=== PATIENT | female | born 1945 | race Hispanic/Latino ===

== ENCOUNTER 2020-02-11 08:08 | Emergency (ER) | payer OTHER ==
[2020-02-11] MEDS ORDERED: FENTANYL CITRATE PF 50 MCG/1 ML 2ML VIAL ONE (08:33)
[2020-02-11] MEDS ORDERED: ONDANSETRON HCL 4 MG/2 ML VIAL ONE (08:33)
[2020-02-11 08:41] LABS: BASOPHILS % (AUTO) 0.6 % (0.0-5.0); EOSINOPHILS % (AUTO) 1.5 % (0.0-8.0); HEMATOCRIT 37.7 % (36-48); LYMPHOCYTES % (AUTO) 19.5 % (21.0-51.0); MEAN CORPUSCULAR HEMOGLOBIN 27.6 pg (27.0-33.0); MEAN CORPUSCULAR HGB CONC 31.6 g/dL (32.0-36.0); MEAN CORPUSCULAR VOLUME 87.5 fL (79-99); MONOCYTES % (AUTO) 5.1 % (3.0-13.0); PLATELET COUNT (AUTO) 236 K/uL (130-400); RED BLOOD CELL COUNT(AUTO) 4.31 MIL/uL (4.00-5.50); RED CELL DISTRIBUTION WIDTH 15.6 % (11.0-15.5); WHITE BLOOD COUNT (AUTO) 8.7 K/uL (4.8-10.8)
[2020-02-11 08:42] LABS: CREATININE 0.9 mg/dL (0.5-1.5); POTASSIUM 4.4 mmol/L (3.5-5.1)
== END 2020-02-11 11:09 | disposition home or self-care (01) ==
LOC: EDH 08:08
DX: S40.012A Contusion of left shoulder, initial encounter (principal); E11.9 Type 2 diabetes mellitus without complications; I10 Essential (primary) hypertension; E03.9 Hypothyroidism, unspecified; Z90.49 Acquired absence of other specified parts of digestive tract; Z90.710 Acquired absence of both cervix and uterus; W18.39XA Other fall on same level, initial encounter; Y93.01 Activity, walking, marching and hiking; Y92.89 Other specified places as the place of occurrence of the external cause; Y99.8 Other external cause status
CPT/HCPCS: 36415; 70450; 72125; 73030; 80048; 84484; 85025; 93005; 96374; 96375; 99284; J2405; J3010

== ENCOUNTER 2020-06-15 17:31 | Inpatient (IN) | payer MEDICARE, OTHER ==
[~2020-06-15] VITALS: Ht 172.7 cm; Wt 100.2 kg
[2020-06-15] MEDS ORDERED: ACETAMINOPHEN WITH CODEINE 1 TAB TAB ONE (17:53)
[2020-06-15] MEDS ORDERED: MORPHINE 4 MG SYG ONE (19:08)
[2020-06-15 19:26] LABS: BASOPHILS % (AUTO) 0.6 % (0.0-5.0); EOSINOPHILS % (AUTO) 9.7 % (0.0-8.0); HEMATOCRIT 35.1 % (36-48); LYMPHOCYTES % (AUTO) 13.2 % (21.0-51.0); MEAN CORPUSCULAR HEMOGLOBIN 26.9 pg (27.0-33.0); MEAN CORPUSCULAR HGB CONC 31.3 g/dL (32.0-36.0); MEAN CORPUSCULAR VOLUME 85.8 fL (79-99); MONOCYTES % (AUTO) 4.9 % (3.0-13.0); NEUTROPHILS % (AUTO) 71.1 % (40.0-77.0); PLATELET COUNT (AUTO) 223 K/uL (130-400); RED BLOOD CELL COUNT(AUTO) 4.09 MIL/uL (4.00-5.50); RED CELL DISTRIBUTION WIDTH 15.6 % (11.0-15.5); WHITE BLOOD COUNT (AUTO) 8.7 K/uL (4.8-10.8)
[2020-06-15 19:32] LABS: INR 0.99 (0.85-1.15); PROTHROMBIN TIME 10.8 SEC (9.6-11.6)
[2020-06-15 19:33] LABS: PARTIAL THROMBOPLASTIN TIME 26.6 SEC (26.3-35.5)
[2020-06-15 19:40] LABS: CREATININE 1.2 mg/dL (0.5-1.5); POTASSIUM 4.7 mmol/L (3.5-5.1)
[2020-06-15] MEDS ORDERED: ACETAMINOPHEN 325 MG TAB PO PRN ×2 (22:15)
[2020-06-15] MEDS ORDERED: MORPHINE 2 MG SYG IV PRN (22:15)
[2020-06-15] MEDS ORDERED: ONDANSETRON 4MG INJ IV PRN (22:15)
[2020-06-15] MEDS ORDERED: MORPHINE 4 MG SYG IV PRN (22:15)
[2020-06-16] VITALS (24 sets, daily range): BP systolic 103–176; BP diastolic 37–69
[2020-06-16] MEDS ORDERED: ATORVASTATIN 20 MG TABLET ONE (01:36)
[2020-06-16] MEDS ORDERED: INSULIN HUMULIN R 100 UNIT/ML 3ML ONE (01:41)
[2020-06-16 06:12] LABS: BASOPHILS % (AUTO) 0.6 % (0.0-5.0); EOSINOPHILS % (AUTO) 0.5 % (0.0-8.0); HEMATOCRIT 33.4 % (36-48); LYMPHOCYTES % (AUTO) 16.1 % (21.0-51.0); MEAN CORPUSCULAR HEMOGLOBIN 26.9 pg (27.0-33.0); MEAN CORPUSCULAR HGB CONC 31.1 g/dL (32.0-36.0); MEAN CORPUSCULAR VOLUME 86.3 fL (79-99); MONOCYTES % (AUTO) 6.5 % (3.0-13.0); NEUTROPHILS % (AUTO) 75.8 % (40.0-77.0); PLATELET COUNT (AUTO) 237 K/uL (130-400); RED BLOOD CELL COUNT(AUTO) 3.87 MIL/uL (4.00-5.50); RED CELL DISTRIBUTION WIDTH 15.8 % (11.0-15.5); WHITE BLOOD COUNT (AUTO) 8.9 K/uL (4.8-10.8)
[2020-06-16 06:23] LABS: POTASSIUM 4.3 mmol/L (3.5-5.1)
[2020-06-16 06:25] LABS: INR 1.03 (0.85-1.15); PROTHROMBIN TIME 11.2 SEC (9.6-11.6)
[2020-06-16 06:26] LABS: PARTIAL THROMBOPLASTIN TIME 25.8 SEC (26.3-35.5)
[2020-06-16] MEDS ORDERED: ONDANSETRON 4MG INJ ONE ×2 (08:29→15:45)
[2020-06-16] MEDS ORDERED: MORPHINE 2 MG SYG ONE (08:29)
[2020-06-16] MEDS: FAMOTIDINE 20MG VIAL IV SCH ×2 (09:00→20:30)
[2020-06-16] MEDS: METOPROLOL TARTRATE 25 MG TAB PO SCH ×2 (09:00→20:30)
[2020-06-16] MEDS: LOSARTAN 50 MG TABLET PO SCH (09:00)
[2020-06-16] MEDS ORDERED: FAMOTIDINE 20MG VIAL IV ONE (09:32)
[2020-06-16] MEDS: INSULIN HUMULIN R 100 UNIT/ML 3ML SQ SCH ×3 (12:00→20:37)
[2020-06-16] MEDS ORDERED: HYDRALAZINE 20MG/ML VIAL IV PRN ×2 (15:00→15:15)
[2020-06-16] MEDS ORDERED: 0.9%NACL 1000ML 1,000 ML IV ONE (15:36)
[2020-06-16] MEDS ORDERED: CEFAZOLIN SODIUM 1 GM VIAL ONE (15:36)
[2020-06-16] MEDS ORDERED: LIDOCAINE PF 100MG/5ML (2%) SYRINGE 5ML ONE ×2 (15:43→18:00)
[2020-06-16] MEDS ORDERED: SUCCINYLCHOLINE CHLORIDE 20 MG/ML 10 ML VIAL ONE (15:43)
[2020-06-16] MEDS ORDERED: PROPOFOL 10 MG/ML 20ML VIAL IV ONE (15:45)
[2020-06-16] MEDS ORDERED: DEXAMETHASONE SOD PHOSPHATE 10MG/ML 1ML VIAL ONE (15:45)
[2020-06-16] MEDS ORDERED: GLYCOPYRROLATE 1 MG/5 ML SYRINGE ONE (15:45)
[2020-06-16] MEDS ORDERED: MIDAZOLAM HCL 1 MG/ML 2ML VIAL ONE (15:45)
[2020-06-16] MEDS ORDERED: NEOSTIGMINE 5MG/5ML SYR IV ONE (15:45)
[2020-06-16] MEDS ORDERED: MEPERIDINE-PF 25 MG/ML SYG ONE (15:46)
[2020-06-16] MEDS ORDERED: FENTANYL CITRATE PF 50 MCG/1 ML 2ML VIAL ONE (15:46)
[2020-06-16] MEDS ORDERED: ROCURONIUM 10MG/1ML SYR 10 MG/ML ML ONE (15:46)
[2020-06-16] MEDS ORDERED: ROPIVACAINE 0.5% 5MG/ML 30ML IJ ONE (15:48)
[2020-06-16] MEDS: CEFAZOLIN SODIUM 1 GM VIAL IVP SCH ×2 (16:00→18:15)
[2020-06-16] MEDS ORDERED: KETOROLAC 30MG VIAL (30MG/ML) ONE (17:58)
[2020-06-16] MEDS ORDERED: ATORVASTATIN 20 MG TABLET PO SCH (21:00)
[2020-06-16] MEDS ORDERED: INSULIN GLARGINE 100 UNITS/ML 10 ML VIAL SQ SCH (21:00)
[2020-06-17] MEDS ORDERED: INSLAN SQ (01:10)
[2020-06-17] MEDS ORDERED: LOSA50TA64 PO (01:10)
[2020-06-17] MEDS ORDERED: ATOR40TA71 PO (01:10)
[2020-06-17] MEDS ORDERED: MULT-1367 PO (01:10)
[2020-06-17] MEDS ORDERED: HYDR25TA PO (01:10)
[2020-06-17] MEDS ORDERED: LIRA0.6P SQ (01:10)
[2020-06-17] MEDS ORDERED: OMEP40CA21 PO (01:10)
[2020-06-17] MEDS ORDERED: ASPI-1197 PO (01:10)
[2020-06-17] MEDS ORDERED: CALC-1009 PO (01:10)
[2020-06-17] MEDS ORDERED: LEVO50CA4 PO (01:10)
[2020-06-17] MEDS: CEFAZOLIN SODIUM 1 GM VIAL IVP SCH (01:13)
[2020-06-17] MEDS ORDERED: GLIP1TAB6 PO (01:22)
[2020-06-17 04:12] VITALS: BP 111/64
[2020-06-17] MEDS: INSULIN HUMULIN R 100 UNIT/ML 3ML SQ SCH ×2 (06:19→12:19)
[2020-06-17 08:04] VITALS: BP 114/35
[2020-06-17] MEDS ORDERED: MULTIVITAMIN TABLET PO SCH (09:00)
[2020-06-17] MEDS ORDERED: HYDROCHLOROTHIAZIDE 25 MG TABLET PO SCH (09:00)
[2020-06-17] MEDS ORDERED: CEFAZOLIN SODIUM 1 GM VIAL IVP SCH (09:00)
[2020-06-17] MEDS ORDERED: ASPIRIN 81MG CHEW TAB PO SCH (09:00)
[2020-06-17] MEDS ORDERED: LOSARTAN 50 MG TABLET PO SCH (09:00)
[2020-06-17] MEDS ORDERED: CA 600MG+VIT D 400 UNIT TAB 1 TAB TABLET PO SCH (09:00)
[2020-06-17] MEDS: FAMOTIDINE 20MG VIAL IV SCH (09:40)
[2020-06-17] MEDS: LOSARTAN 50 MG TABLET PO SCH (09:46)
[2020-06-17] MEDS: METOPROLOL TARTRATE 25 MG TAB PO SCH (09:47)
[2020-06-17 11:20] VITALS: BP 126/51
[2020-06-17 16:30] VITALS: BP 151/50
[2020-06-17] MEDS ORDERED: ATORVASTATIN 40 MG TABLET PO SCH (21:00)
[2020-06-18] MEDS ORDERED: LEVOTHYROXINE 50 MCG TABLET PO SCH (07:30)
== END 2020-06-17 18:00 | DRG 517 ==
LOC: EDH 17:31 → EDHIP 22:11 → 3AH 06-16 13:22
PROVIDERS: ADMIT Internal Medicine; ATTEND Internal Medicine
PROC: 0QSF04Z Reposition Left Patella with Internal Fixation Device, Open Approach (ICD-10-PCS; principal; 2020-06-15)
DX: S82.042A Displaced comminuted fracture of left patella, initial encounter for closed fracture (principal); E11.9 Type 2 diabetes mellitus without complications; E78.5 Hyperlipidemia, unspecified; E03.9 Hypothyroidism, unspecified; I10 Essential (primary) hypertension; E66.01 Morbid (severe) obesity due to excess calories; Z68.33 Body mass index [BMI] 33.0-33.9, adult; W00.0XXA Fall on same level due to ice and snow, initial encounter; Y93.01 Activity, walking, marching and hiking; Y92.098 Other place in other non-institutional residence as the place of occurrence of the external cause; Y99.8 Other external cause status; Z79.4 Long term (current) use of insulin; Z90.710 Acquired absence of both cervix and uterus
CPT/HCPCS: 36415; 73562; 80048; 82948; 85025; 85610; 85730; 86850; 86900; 86901; 93005; 97039; A4344; G0378; J0330; J0690; J1100; J1815; J1885; J2001; J2175; J2250; J2270; J2405; J2704; J2710; J2795; J3010; J3490; J7030

== ENCOUNTER → 2021-05-20 | Outpatient (CLI) | payer MEDICARE ==
[~2021-05-20] MED LIST: ASPI-1197 PO; ATOR40TA71 PO; CALC-1009 PO; GLIP1TAB6 PO; HYDR25TA PO; INSLAN SQ; LEVO50CA4 PO; LIRA0.6P SQ; LOSA50TA64 PO; MULT-1367 PO; OMEP40CA21 PO
[2021-05-20 12:31] LABS: BASOPHILS % (AUTO) 0.7 % (0.0-5.0); EOSINOPHILS % (AUTO) 1.7 % (0.0-8.0); HEMATOCRIT 35.3 % (36-48); LYMPHOCYTES % (AUTO) 17.3 % (21.0-51.0); MEAN CORPUSCULAR HEMOGLOBIN 26.5 pg (27.0-33.0); MEAN CORPUSCULAR HGB CONC 31.2 g/dL (32.0-36.0); MEAN CORPUSCULAR VOLUME 85.1 fL (79-99); MONOCYTES % (AUTO) 5.8 % (3.0-13.0); PLATELET COUNT (AUTO) 265 K/uL (130-400); RED BLOOD CELL COUNT(AUTO) 4.15 MIL/uL (4.00-5.50); RED CELL DISTRIBUTION WIDTH 16.5 % (11.0-15.5)
[2021-05-20 12:53] LABS: THYROID STIMULATING HORMONE 4.31 uIU/mL (0.36-3.74)
== END | disposition home or self-care (01) ==
LOC: LAB 11:32
PROVIDERS: ATTEND Family Medicine
DX: D50.9 Iron deficiency anemia, unspecified (principal); E78.2 Mixed hyperlipidemia; Z79.4 Long term (current) use of insulin
CPT/HCPCS: 36415; 83540; 84439; 84443; 85025

== ENCOUNTER → 2021-10-20 | Outpatient (CLI) | payer MEDICARE | END | disposition home or self-care (01) | LOC: RAH 13:55 | PROVIDERS: ATTEND Family Medicine | DX: I08.3 Combined rheumatic disorders of mitral, aortic and tricuspid valves (principal); I11.9 Hypertensive heart disease without heart failure; E78.5 Hyperlipidemia, unspecified; E11.9 Type 2 diabetes mellitus without complications; E66.9 Obesity, unspecified | CPT/HCPCS: 93306 ==

== ENCOUNTER 2025-03-26 05:51 | Day surgery (SDC) | payer MEDICARE ==
[2025-03-24 11:30] LABS: INR 1.26 (0.85-1.15)
[2025-03-24 11:32] LABS: CREATININE 1.3 mg/dL (0.5-1.0); GLOMERULAR FILTR. RATE CALC 42.0 mL/min (>90); GLUCOSE,RANDOM 206.0 mg/dL (70-105); SODIUM SERUM 132.0 mmol/L (136-145); UREA NITROGEN, BLOOD 28.0 mg/dL (7-18)
[2025-03-24 11:34] VITALS: BP 139/54; PULSE 61; RESP 17; TEMP 97.9
[2025-03-24 11:35] LABS: IMMATURE GRANULOCYTE ABSOLUTE 0.04 K/uL (0-1); NUCLEATED RED BLOOD CELLS 0.0 % (0.0-0.19); PLATELET COUNT (AUTO) 233 K/uL (130-400); RED BLOOD CELL COUNT(AUTO) 3.72 MIL/uL (4.00-5.50); RED CELL DISTRIBUTION WIDTH 18.3 % (11.0-15.5); WHITE BLOOD COUNT (AUTO) 7.9 K/uL (4.8-10.8)
--- NOTE | 2025-03-24 12:19 | EKG ---
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: [id number] : 1945 Requested By: CARMINE CLAY Order Number: [id number] Reading MD: Dimitris Grey Measurements Intervals [place] Rate: 55 P: 0 ME: 0 QRS: -76 QRSD: 185 T: 23 QT: 492 QTc: 472 Interpretive Statements SINUS BRADYCARDIA RBBB and LAFB Compared to ECG 02/27/2025 16:33:42 Left anterior fascicular block now present Right bundle-branch block now present Sinus bradycardia no longer present Sinus arrhythmia no longer present Short ME interval no longer present Left-axis deviation no longer present Electronically Signed On 03-25-2025 21:11:25 [employer] by Dimitris Grey Please click the below link to view image of tracing.
--- NOTE | 2025-03-24 14:08 | NUR ---
RE: LABS REPORTED BMP RESULTS TO DR CLAY
--- NOTE | 2025-03-24 14:11 | NUR ---
RE: BMP REPORTED BMP RESULTS TO DR CLAY, RECEIVED ORDERS TO REPEAT BMP ON MORNING OR PROCEDURE. INFORMED DR CLAY THAT PATIENT LAST TOOK VERAPAMIL AND PROPAFENONE THIS MORNING. PER DR CLAY, HAVE PATIENT HOLD THOSE 2 MEDICATIONS STARTING NOW AND OK TO PROCEED. CALLED PATIENT AND INSTRUCTED HER TO HOLD PROPAFENONE AND VERAPAMIL, PATIENT VERBALIZED UNDERSTANDING.
[2025-03-26] VITALS (7 sets, daily range): BP systolic 110–157; BP diastolic 47–71; PULSE 64–73; RESP 10–18; TEMP 97.6–97.9
[~2025-03-26] VITALS: Ht 172.7 cm; Wt 94.9 kg
[~2025-03-26 05:51] MED LIST changes: +APIX5TAB PO; -ASPI-1197 PO; +GABA-529 PO; -INSLAN SQ; +INSU3INS3 SQ; -LEVO50CA4 PO; +LEVO50CA5 PO; -LIRA0.6P SQ; -MULT-1367 PO; +PROP225C24 PO; +TIRZ10PE SQ; +VERA120T92 PO
[2025-03-26 06:52] LABS: CREATININE 1.1 mg/dL (0.5-1.0); GLOMERULAR FILTR. RATE CALC 51.0 mL/min (>90); GLUCOSE,RANDOM 174.0 mg/dL (70-105); SODIUM SERUM 136.0 mmol/L (136-145); UREA NITROGEN, BLOOD 27.0 mg/dL (7-18)
[2025-03-26] MEDS ORDERED: LIDOCAINE HCL 1% 20 ML VIAL ONE (07:56)
[2025-03-26] MEDS ORDERED: MIDAZOLAM HCL 1 MG/ML 2ML VIAL ONE ×2 (07:56→08:40)
[2025-03-26] MEDS ORDERED: HEParin-NS 1,000 UNIT/500 ML 1,000 ML IV ONE (07:56)
[2025-03-26] MEDS ORDERED: SODIUM BICARB 50MEQ 50ML VIAL 50 ML ONE (07:56)
== END 2025-03-26 13:00 | disposition home or self-care (01) ==
LOC: DAH 05:51
PROVIDERS: ATTEND Internal Medicine Cardiovascular Disease
DX: I48.3 Typical atrial flutter (principal); I45.2 Bifascicular block; I10 Essential (primary) hypertension; E11.9 Type 2 diabetes mellitus without complications; E03.9 Hypothyroidism, unspecified; E78.5 Hyperlipidemia, unspecified; Z79.01 Long term (current) use of anticoagulants; Z79.899 Other long term (current) drug therapy
CPT/HCPCS: 80048 ×2; 85025; 85610; 85730; 36415 ×2; 93005; 93653; 99156; 99157 ×6; 85347 ×2; 82948; C1894 ×2; C1732 ×3; C1760 ×2; C1893; A4649 ×2; J3010; J3490; J1644 ×3; J2250 ×2; A4215; A4222; A4221; A4663; A4216; A4606; A4223 ×3; A4554; A4335